=== PATIENT | male | born 1970 | race Two or more races ===

== ENCOUNTER 2021-02-27 17:06 | Emergency (ER) | payer MEDICAID ==
[~2021-02-27] VITALS: Ht 170.2 cm; Wt 66.0 kg
[2021-02-27 17:08] VITALS: BP 132/88
== END 2021-02-27 18:16 | disposition left against medical advice (07) ==
LOC: ER 17:06
DX: Z53.21 Procedure and treatment not carried out due to patient leaving prior to being seen by health care provider (principal); R56.9 Unspecified convulsions
CPT/HCPCS: 93005

== ENCOUNTER 2021-08-09 15:18 | Emergency (ER) | payer MEDICAID ==
[~2021-08-09] VITALS: Ht 167.6 cm; Wt 65.0 kg
[2021-08-09 15:41] VITALS: BP 115/65
== END 2021-08-10 17:36 | disposition left against medical advice (07) ==
LOC: ER 15:18
DX: J11.1 Influenza due to unidentified influenza virus with other respiratory manifestations (principal); I10 Essential (primary) hypertension; R56.9 Unspecified convulsions; F17.210 Nicotine dependence, cigarettes, uncomplicated; Z88.0 Allergy status to penicillin
CPT/HCPCS: 93005; 99283